=== PATIENT | female | born 1950 | race Caucasian/White ===

== ENCOUNTER 2022-04-06 11:15 | Outpatient (CLI) | payer MEDICARE, BC, SELFPAY ==
[2022-04-06 13:52] LABS: Cholesterol* 287 mg/dL (90-199); Glucose* 91 mg/dL (60-115); HDL Cholesterol* 67 mg/dL (>=50); LDL Cholesterol Calculated 180 mg/dL (<100); Triglycerides* 201 mg/dL (40-149)
== END 2022-04-06 11:16 | disposition home or self-care (01) ==
PROVIDERS: PCP Internal Medicine; Visit Provider Internal Medicine
DX: Z00.00 Encounter for general adult medical examination without abnormal findings (principal); Z13.1 Encounter for screening for diabetes mellitus; Z13.6 Encounter for screening for cardiovascular disorders
CPT/HCPCS: 80061; 82947

== ENCOUNTER 2022-07-30 12:57 | Outpatient (CLI) | payer MEDICARE, BC, SELFPAY ==
--- NOTE | 2022-07-30 13:00 | CRLHL7_ITS ---
For Patients: As a result of the Century Cures Act, medical imaging exams and procedure reports are released immediately into your electronic medical record. You may view this report before your referring provider. If you have questions, please contact your health care provider. DXA BONE MINERAL DENSITY STUDY Current height (in): 62.0. Weight (lb): 153.0. Menopause age: 54. Ethnicity: White. 1. Have you had a previous hip or vertebral fracture? No. 2. Have you had any fractures during your adult life which did not result from significant trauma (e.g., auto accident)? No. 3. Did either of your parents have a hip fracture? Yes. 4. Do you smoke? No. 5. Have you ever taken Glucocorticoids? No. 6. Do you have rheumatoid arthritis? No. 7. Do you have secondary osteoporosis? No. 8. Do you drink 3 or more alcoholic drinks per day? No. 9. Are you being treated for osteoporosis? No. 10. Have you ever taken any of the following medications: Actonel, Evista, Fosamax, Miacalcin, Reclast, Boniva, Forteo, HRT (i.e. estrogen/hormone therapy), Protelos, Prolia, Vitamin D, Calcium, other ??? please specify. ANSWER: Yes, vitamin D and calcium. 11. Do you have any of the following medical conditions: Anorexia or bulimia, asthma or emphysema, end stage renal disease, hyperparathyroidism, any seizure disorders, cancer, inflammatory bowel diseases, hysterectomy, other ??? please specify. ANSWER: No. 12. What was your maximum height (inches)? 62. 13. Do you perform weight bearing exercise regularly? Yes. 14. Do you regularly consume dairy products? Yes. 15. Do you drink caffeinated beverages? Yes. 16. At what age did your period start? Not provided. 17. Are you premenopausal? No. 18. How many full term pregnancies have you had? 3. 19. Have you ever missed your period for more than 6 months in a row (not including or menopause)? Yes. TECHNIQUE: Bone mineral density study was performed using the Sticky. FINDINGS: The results of the study expressed as bone mineral density (BMD) are as follows: Lumbar spine L1 to L4: BMD: 0.967 g/cm2. T-score: -0.7. Z-score: 1.5. Neck Left: BMD: 0.693 g/cm2. T-score: -1.4. Z-score: 0.5. Right: BMD: 0.663 g/cm2. T-score: -1.7. Z-score: 0.2. Total Left: BMD: 0.788 g/cm2. T-score: -1.3. Z-score: 0.3. Right: BMD: 0.797 g/cm2. T-score: -1.2. Z-score: 0.4. IMPRESSION: Osteopenia. FRAX 10-year Fracture Risk Major Osteoporotic Fracture: 17 percent Hip Fracture: 5.1 percent Reported Risk Factors: [place] () Neck BMD=0.663, BMI=28.0 MANOJ TRAVIS MD Diagnostic/Nuclear Medicine Radiologist [email or web address] PAULA/ina be/Dictated by: Manoj Travis MD @ 07/30/2022 9:41:00 PM (Electronically Signed)
--- NOTE | 2022-07-30 14:00 | CRLHL7_ITS ---
For Patients: As a result of the Century Cures Act, medical imaging exams and procedure reports are released immediately into your electronic medical record. You may view this report before your referring provider. If you have questions, please contact your health care provider. BILATERAL SCREENING MAMMOGRAM WITH COMPUTER-AIDED DETECTION TECHNIQUE: CC and MLO views were obtained. These mammographic images have been obtained using full-field digital technique. These mammographic images were interpreted with the benefit of computer-aided detection. COMPARISON FILM: 06/16/17, 09/29/12, 10/06/11. FINDINGS: The breasts are almost entirely fatty. IMPRESSION: There is no radiographic evidence for malignancy. ASSESSMENT: BI-RADS Category 1: Negative RECOMMENDATION: Routine screening mammogram in 1 year. A lay language report of this examination will be provided to the patient. NYA TRAVIS M.D. Diagnostic/Nuclear Medicine Radiologist [email or web address] PAULA:[email or web address] Transcribed: 07/31/2022, 1:[address]/Dictated by: Nya Travis MD @ 07/31/2022 8:37:00 AM (Electronically Signed)
== END 2022-07-30 12:58 | disposition home or self-care (01) ==
LOC: RAD 13:01
PROVIDERS: PCP Internal Medicine; Visit Provider Internal Medicine
DX: Z12.31 Encounter for screening mammogram for malignant neoplasm of breast; M85.89 Other specified disorders of bone density and structure, multiple sites; Z78.0 Asymptomatic menopausal state
CPT/HCPCS: 77067; 77080

== ENCOUNTER 2023-06-10 08:09 | Outpatient (CLI) | payer MEDICARE, BC, SELFPAY ==
--- OUTSIDE RECORDS SUMMARY | 2023-06-11 07:01 | XMS_ITS | Clinical Summary ---
Author Name Unknown Organization [employer] [facility] Address [place], [place] [address] Care Team Providers Care Family Nurse Name Role Phone Nonstaff, Doctor Primary Care Provider Unavailab le Allergies Active Allergy Reactions Criticality Noted Date Comments Amoxicillin Hives,Itching High 12/29/2020 Medications No known medications Active Problems Problem Noted Date Diagnosed Date Cholestasis 07/12/2018 Resolved Problems Problem Noted Date Diagnosed Date Resolved Date Personal history of other di seases of the digestive system 07/12/2018 08/20/2021 Immunizations Name Administration Dates Next Due COVID-19 vaccine (Moderna 10 0mcg/0.5mL) PF, MDV 07/12/2020,06/14/2020 Hepatitis A (Adult) 08/01/2012,12/16/2011 Inactivated Polio Vaccine 03/12/2014 Influenza Virus, Unspecified 03/07/2014,04/22/20 10,02/28/2009 Influenza, IIV3 (Age >=3 years) 03/07/2014,02/28 Influenza, IIV4 (=>6mos) MDV 04/12/2019 Pneumococcal conj 13-Valent (Prevnar 13) 018 Tdap 03/12/2014 Typhoid (injectable) 03/12/2014 Family History Medical History Relation Name Comments Hip fracture Father No Known Problems Mother Relation Name Status Comments Father Alive Mother Alive Social History Tobacco Use Types Packs/Day Years Used Date Smoking Tobacco: Never Smokeless Tobacco: Never Tobacco Cessation:Counseling Given: Yes Alcohol Use Standard Drinks/Week Comments Yes 0 (1 standard drink = 0.6 oz pur e alcohol) PHQ-2 Answer Date Recorded PHQ-2 TOTAL SCORE 0 06/23/2021 Social Connections Answer Date Recorded Frequency of Communication with Friends and Fami ly Not on file 05/31/2021 Financial Resource Strain Answer Date R ecorded Difficulty of Paying Living Expenses Not on file 05/31/2021 Difficulty of Paying Living Expenses Not on file 05/31/2021 Sex and Gender Information Value Date Recorded Sex Assigned at Not on file Gender Identity Not on file Sexual Orientation Not on file Obstetrics History Last Filed Vital Signs Vital Sign Reading Time Taken Comments Blood Pressure 108/68 08/20/2021 11:07 AM CDT Pulse 88 08/20/2021 11:07 AM CDT Temperature 36.9 ??C (98.5 ??F) 08/20/2021 1 1:07 AM CDT Respiratory Rate 16 08/20/2021 11:0 7 AM CDT Oxygen Saturation 97% 08/20/2021 11: 07 AM CDT Inhaled Oxygen Concentration - - Weight 70.2 kg (154 lb 12.8 oz) 022 11:07 AM CDT Height 161 cm (5' 3.39) 08/20/2021 11: 07 AM CDT Body Mass Index 27.09 08/20/2021 11:07 AM CDT Plan of Treatment Health Maintenance Due Date Last Done Comments Hepatitis C screening for ag e 18-79 1968 Lipids for age 45-75 08/07/1995 Zoster (shingles) series for age 50+ (1 of 2) 2000 Mammogram for age 45-75 09/29/2013 09/29/2012 DEXA/DXA scan for age 65+ 08/07/2015 Medicare Wellness for age 65+ 08/07/2015 Pneumococcal series for age 65+ (2 of 2 - PPSV23 or PCV20) 06/08/2018 06/08/2017 Colonoscopy through age 75 06/06/2022 06/06/2012, Depression screening for age 12+ 06/23/2022 06/23/19, 11/11/2020 BMI (ht and wt on same day) for age 18+ 08/20/2022 08/20/2021, 06/23/2021, 11/11/2020 COVID-19 vaccine series ( - season) 2023 07/12/2020, 06/14/2020 Influenza for age 65+ 01/29/2023 04/12/2019 , 03/07/2014, 03/07/2014, Additional history exists Tetanus booster 03/12/2024 03/12/2014 Tdap Completed 03/12/2014 Care Teams Family Nurse Relationship Specialty Start Date End Date Nonstaff, Doctor NON STAFF DOCTOR PCP - General 12/25/17
== END 2023-06-10 08:10 | disposition home or self-care (01) ==
LOC: NFLDREF 06-11 06:59
PROVIDERS: PCP Internal Medicine; Referring Provider Internal Medicine; Visit Provider Internal Medicine
DX: E78.5 Hyperlipidemia, unspecified (principal); M85.80 Other specified disorders of bone density and structure, unspecified site
CPT/HCPCS: 80061; 82306

== ENCOUNTER 2023-09-09 08:59 | Outpatient (CLI) | payer MEDICARE, BC, SELFPAY ==
--- OUTSIDE RECORDS SUMMARY | 2023-09-09 09:02 | XMS_ITS | Clinical Summary ---
Author Name Unknown Organization [facility] Address [place], [place] [address] Care Team Providers Care Market Developer Name Role Phone Nonstaff, Doctor Primary Care [...] 2023 07/12/2020, 06/14/2020 Influenza for age 65+ 01/30/2024 04/12/2019 , 03/07/2014, 03/07/2014, Additional history exists Tetanus booster 03/12/2024 03/12/2014 Tdap Completed 03/12/2014 Procedures Procedure Name Priority Date/Time Associated Diagnosis Comments (IA) VT COLONOSCOPY DIAGNOSTIC Routine 06/06/2012 Special screening for malignant neoplasms, colon from Last 3 Months or Most Recently Relevant to Health Maintenance Results * VT COLONOSCOPY DIAGNOSTIC (06/06/2012) Shayan Mondragon MD [facility] - DIGESTIVE [facility] SERVICES from Last 3 Months or Most Recently Relevant to Health Maintenance Care Teams Market Developer Relationship Specialty Start Date End Date Nonstaff, Doctor NON STAFF DOCTOR PCP - General 12/25/17
--- NOTE | 2023-09-09 09:15 | MM_ITS ---
Patient: DYANA FERNANDEZ Facility:?[facility] Patient ID:?[id number] Site Patient ID:?[id number]. Site :?[id number] Study:?XRay-Breast Bilateral 3D W/CAD-09/09/2023 10:25:15 AM Ordering Physician:Savannah Weber Final Report: BILATERAL SCREENING MAMMOGRAM WITH COMPUTER-AIDED DETECTION AND TOMOSYNTHESIS TECHNIQUE: CC and MLO views were obtained. These mammographic images have been obtained using full-field digital technique. These mammographic images were interpreted with the benefit of computer-aided detection. Breast Tomosynthesis was used in this interpretation. COMPARISON FILM: 07/30/22, 06/16/17, 09/29/12. FINDINGS: The breasts are almost entirely fatty IMPRESSION: There is no radiographic evidence for malignancy. ASSESSMENT: BI-RADS Category 1: Negative RECOMMENDATION: Routine screening mammogram in 1 year. A lay language report of this examination will be provided to the patient. Shashank Blakely M.D. Diagnostic Radiologist [email or web address] RHEA/emeterio Transcribed: 2:13 p.[email or web address] storm/Dictated by: Shashank Blakely MD @ 09/09/2023 12:16:00 PM Signed by:?Shashank Blakely MD @09/09/2023 2:28:33 PM (Electronic Signature)
== END 2023-09-09 09:00 | disposition home or self-care (01) ==
LOC: MAMMO 09:00
PROVIDERS: PCP Internal Medicine; Visit Provider Internal Medicine
DX: Z12.31 Encounter for screening mammogram for malignant neoplasm of breast (principal)
CPT/HCPCS: 77063; 77067

== ENCOUNTER 2024-10-13 10:14 | Outpatient (CLI) | payer MEDICARE, SELFPAY ==
--- NOTE | 2024-10-13 10:15 | CRLHL7_ITS ---
For Patients: As a result of the Century Cures Act, medical imaging exams and procedure reports are released immediately into your electronic medical record. You may view this report before your referring provider. If you have questions, please contact your health care provider. INDICATION: BILATERAL SCREENING MAMMOGRAM, ASYMPTOMATIC 74 Y/O FEMALE COMPARISON: 09/09/2023, 07/30/2022, 06/16/2017 TECHNIQUE: Digital mammogram in CC and MLO projections including computer-aided detection (CAD) and tomosynthesis. BREAST COMPOSITION: The breasts are almost entirely fatty. FINDINGS: No suspicious findings. ASSESSMENT: BI-RADS 1 Negative RECOMMENDATION: Annual screening mammogram. A lay language report of this examination will be provided to the patient. Dictated by: Shashank Blakely MD @ 10/13/2024 11:00:14 (Electronically Signed)
== END 2024-10-13 10:15 | disposition home or self-care (01) ==
LOC: MAMMO 10:15
PROVIDERS: PCP Internal Medicine; Visit Provider Internal Medicine
DX: Z12.31 Encounter for screening mammogram for malignant neoplasm of breast (principal); M85.80 Other specified disorders of bone density and structure, unspecified site; Z13.6 Encounter for screening for cardiovascular disorders
CPT/HCPCS: 77063; 77067; 80061; 82306

== ENCOUNTER 2025-01-22 09:14 | Outpatient (CLI) | payer MEDICARE, SELFPAY | END 2025-01-22 09:15 | disposition home or self-care (01) | LOC: NFLDREF 09:15 | PROVIDERS: PCP Internal Medicine; Visit Provider Internal Medicine | DX: Z01.818 Encounter for other preprocedural examination (principal) | CPT/HCPCS: 80053 ==